=== PATIENT | male | born 1940 | race Caucasian/White ===

== ENCOUNTER 2020-05-19 15:17 | Inpatient (IN) | payer MEDICARE ==
[~2020-05-19] VITALS: Ht 185.4 cm; Wt 89.4 kg
[2020-05-19] MEDS ORDERED: LISI10TA4 PO (16:05)
[2020-05-19] MEDS ORDERED: DONE5TAB82 PO (16:05)
[2020-05-19] MEDS ORDERED: CARV3.12 PO (16:05)
[2020-05-19] MEDS ORDERED: FURO20TA2 PO (16:05)
[2020-05-19] MEDS ORDERED: ASPI81CH33 PO (16:05)
[2020-05-19] MEDS ORDERED: ONDA-83 PO (16:05)
[2020-05-19] MEDS ORDERED: METF-838 PO (16:05)
[2020-05-19] MEDS ORDERED: ROSU20TA5 PO (16:05)
[2020-05-19] MEDS ORDERED: SUCR1TAB56 PO (16:05)
[2020-05-19] MEDS ORDERED: METO5TAB2 PO (16:05)
[2020-05-19 16:18] LABS: BASO % 0.3 % (0.0-1.0); EOS # 0.2 10^3/uL (0.0-0.5); EOS % 2.4 % (0.0-3.0); HEMOGLOBIN 11.2 g/dl (13.5-17.5); MEAN CORPUSCULAR HEMOGLOBIN 30.4 pg (27.0-33.0); MEAN CORPUSCULAR HGB CONC 32.9 g/dl (32.0-36.5); MEAN CORPUSCULAR VOLUME 92.1 fl (80.0-96.0); MONO # 0.7 10^3/uL (0.0-0.8); MONO % 9.6 % (0.0-5.0); NEUTROPHILS # 3.9 10^3/uL (1.5-8.5); NEUTROPHILS % 57.4 % (36.0-66.0); PLATELET COUNT, AUTOMATED 227 10^3/uL (150-450); RED BLOOD COUNT 3.69 10^6/uL (4.30-6.10); WHITE BLOOD COUNT 6.7 10^3/uL (4.0-10.0)
[2020-05-19 16:41] LABS: INR 0.97
[2020-05-19 16:56] LABS: ALBUMIN 3.8 GM/DL (3.2-5.2); ALT/SGPT 19 U/L (12-78); BILIRUBIN,DIRECT < 0.1 MG/DL (0.0-0.2); BILIRUBIN,TOTAL 0.6 MG/DL (0.2-1.0); CK-MB VALUE MASS 1.3 NG/ML (<3.6); CPK CREATINE PHOSPHOKINASE 115 U/L (39-308); LIPASE 135 U/L (73-393); MB/CK RELATIVE INDEX 1.13 (< OR =4); TOTAL PROTEIN 6.7 GM/DL (6.4-8.2); TROPONIN I < 0.02 NG/ML (< 0.10)
[2020-05-19] MEDS ORDERED: ASPIRIN 81 MG CHEW TABLET PO ONE (17:45)
[2020-05-19] MEDS: NS 1,000 ML IV SCH (17:50)
[2020-05-19] MEDS: NITROGLYCERIN 0.4 MG SUBL TABLET SL PRN ×2 (17:52→18:04)
[2020-05-19] MEDS ORDERED: MORPHINE 2 MG/ML 1ML VIAL (J2270) IV ONE (19:45)
[2020-05-19] MEDS: HumaLOG INSULIN (NovoLOG) PER UNIT SC SCH (21:00)
[2020-05-19 22:29] LABS: CK-MB VALUE MASS < 1.0 NG/ML (<3.6); CPK CREATINE PHOSPHOKINASE 90 U/L (39-308); MB/CK RELATIVE INDEX 1.11 (< OR =4); TROPONIN I < 0.02 NG/ML (< 0.10)
[2020-05-19] MEDS ORDERED: FAMO1TAB25 PO (23:02)
[2020-05-20] VITALS (20 sets, daily range): BP systolic 118–192; BP diastolic 60–82; O2SAT 84–97
[2020-05-20] MEDS ORDERED: ASPIRIN 81 MG CHEW TABLET PO STA (00:28)
[2020-05-20] MEDS ORDERED: GLUCOSE 4GM CHEW TABLET PO PRN (00:30)
[2020-05-20] MEDS ORDERED: GLUCAGON INJ 1MG VIAL SC PRN (00:30)
[2020-05-20] MEDS ORDERED: ECOT81TA5 PO (00:30)
[2020-05-20] MEDS ORDERED: ACETAMINOPHEN TAB 650MG DOSE (2X325MG) PO PRN (00:30)
[2020-05-20] MEDS ORDERED: MOM 30ML SUSPENSION UDC PO PRN (00:30)
[2020-05-20] MEDS ORDERED: DEXTROSE 50% 50 ML SYRINGE IV PRN (00:30)
[2020-05-20] MEDS ORDERED: CARV3.12 PO (00:30)
[2020-05-20] MEDS ORDERED: NITROGLYCERIN 0.4 MG SUBL TABLET SL PRN (00:30)
[2020-05-20] MEDS ORDERED: ONDA-83 PO (00:39)
[2020-05-20] MEDS ORDERED: SUCR1TAB56 PO (00:39)
[2020-05-20] MEDS ORDERED: FURO20TA2 PO (00:39)
[2020-05-20] MEDS ORDERED: METF-838 PO (00:39)
[2020-05-20] MEDS ORDERED: DONE10TA90 PO (00:39)
[2020-05-20] MEDS ORDERED: ROSU20TA5 PO (00:39)
[2020-05-20] MEDS ORDERED: METO5TAB2 PO (00:39)
[2020-05-20] MEDS: CARVedilol 3.125 MG TAB PO SCH ×3 (01:45→20:47)
[2020-05-20] MEDS ORDERED: ONDANSETRON 4 MG TAB PO PRN (01:45)
[2020-05-20 02:54] LABS: TROPONIN I < 0.02 NG/ML (< 0.10)
[2020-05-20] MEDS: NS 1,000 ML IV SCH (03:17)
[2020-05-20] MEDS: SUCRALFATE 1 GM TAB PO SCH ×3 (03:17→21:01)
[2020-05-20] MEDS: ROSUVASTATIN 10 MG TAB (CRESTOR) PO SCH ×2 (03:17→21:01)
[2020-05-20] MEDS: DONEPEZIL 5 MG TAB PO SCH ×2 (03:18→21:01)
--- NOTE | 2020-05-20 06:28 | HPEPDOC ---
[facility] Medical History & Physical Date of Admission May 20, 2020 Date of Service: May 20, 2020 Attending Physician: MASOUD MORSE MD History and Physical TIME OF SERVICE: 1217 CHIEF COMPLAINT: chest pain HISTORY OF PRESENT ILLNESS: This 79 yr old M came to the hospital because he wasnt feeling good. He had sudden onset john, 01/17 in severity chest pain for several hours that occurred with activity. At the time of my exam it was gone. He also c/o of abdominal pain and diarrhea but denied, f/c/shortness of breath/leg swelling/ or cough. He has been living with his girlfriend who cant care for him bc of his dementia and sent him to live with his son. The patients son cant care for his father either. REVIEW OF SYSTEMS: 12 point review of systems negative except as listed in HPI PAST MEDICAL/ SURGICAL HISTORY: Dementia CAD HTN DM Dyslipidemia Cataracts Hx of anaplasmosis SOCIAL HISTORY: -tocacco, alcohol or drugs FAMILY HISTORY: CAD ALLERGIES: Please see below. HOME MEDICATIONS: Please see below. Vital Signs Date Time Temp Pulse Resp B/P (MAP) Pulse Ox O2 Delivery O2 Flow Rate FiO2 05/19/20 15:18 96.8 64 17 163/74 (103) 97 05/19/20 16:17 Room Air GENERAL APPEARANCE: well nourished/ well developed /NAD HEENT: no scleral icterus / EOMI CARDIOVASCULAR: bradycardic /NMRG / radial pulses intact LUNGS: CTAB on RA ABDOMEN: soft & not tender w palpitation MUSCULOSKELETAL: LUL x 4 INTEGUMENT: no generalized palor NEUROLOGICAL: CN -12 intact / speech not dysarthric PSYCHIATRIC: A&O /able to understand and follow all commands LABORATORY DATA: 05/19/20 15:53 Laboratory Tests 2 05/19/20 15:53: Immature Granulocyte % (Auto) 0.3, Neutrophils (%) (Auto) 57.4, Lymphocytes (%) (Auto) 30.0, Monocytes (%) (Auto) 9.6H, Eosinophils (%) (Auto) 2.4, Basophils (%) (Auto) 0.3, Neutrophils # (Auto) 3.9, Lymphocytes # (Auto) 2.0, Monocytes # (Auto) 0.7, Eosinophils # (Auto) 0.2, Basophils # (Auto) 0.0, Nucleated Red Blood Cells % (auto) 0.0, Prothrombin Time 13.0, Prothromb Time International Ratio 0.97, Total Bilirubin 0.6, Direct Bilirubin < 0.1, Aspartate Amino Transf (AST/SGOT) 20, Alanine Aminotransferase (ALT/SGPT) 19, Alkaline Phosphatase 59, Total Creatine Kinase 115, Creatine Kinase MB 1.3, Creatine Kinase MB Relative Index 1.13, Troponin I < 0.02, Total Protein 6.7, Albumin 3.8, Albumin/Globulin Ratio 1.3, Lipase 135 05/19/20 21:34: Total Creatine Kinase 90, Creatine Kinase MB < 1.0, Creatine Kinase MB Relative Index 1.11, Troponin I < 0.02 05/20/20 01:56: Troponin I < 0.02, D-Dimer, Quantitative 804.17H, Thyroid Stimulating Hormone (TSH) 2.380 05/20/20 06:07: IMAGING: Chest xray pending MICROBIOLOGY: Please see below. ASSESSMENT: is a 79 yr old w a hx of CAD, HTN, Dyslipidemia and HTN who will be admitted for evaluation of chest pain, abdominal pain and diarrhea pending placement. PLAN: 1.Chest pain EKG showed NSR w a rate of 61 Plan: admit to medical floor, telemetry, serial troponins, d-dimer, TSH, ASA, nitroglycerin, f/u chest x-ray 2.abdominal pain w diarrhea Plan: f/u GI panel / contact precautions 3. CAD / Dyslipidemia Plan: ASA, coreg, statin 4. HTN Plan: coreg, furosemide 5. DM Plan: FSBS, SSI, A1C hypoglycemia protocol 6. Dementia Plan: PFS for placement DVT px lovenox Dispo: home after more than 2 midnights stay Late Entry D-dimer greater than to age adjusted cut off of 10 x age therefore will order CTA to r/o PE Home Medications Scheduled Aspirin (Ecotrin) 81 Mg Tablet.dr, 81 MG PO DAILY Carvedilol (Carvedilol) 3.125 Mg Tablet, 3.125 MG PO BID Donepezil HCl (Donepezil HCl) 10 Mg Tablet, 10 MG PO QHS Furosemide (Furosemide) 20 Mg Tablet, 20 MG PO DAILY Metformin HCl (Metformin HCl ER) 500 Mg Tab.er.24h, 500 MG PO BID Metoclopramide HCl (Metoclopramide HCl) 5 Mg Tablet, 5 MG PO BID BEFORE MEALS Rosuvastatin Calcium (Rosuvastatin Calcium) 20 Mg Tablet, 20 MG PO QHS Sucralfate (Sucralfate) 1 Gm Tablet, 1 GM PO BID Scheduled PRN Ondansetron HCl (Ondansetron HCl) 4 Mg Tablet, 4 MG PO DAILY PRN for NAUSEA Allergies Coded Allergies: promethazine (Verified Allergy, Mild, 05/19/20) hallucinations quetiapine (Verified Allergy, Mild, 05/19/20) hallucinations A-FIB/CHADSVASC A-FIB History Current/History of A-Fib/PAF?: No Current PO Anticoag Therapy: No MASOUD MORSE MD May 20, 2020 06:28
[2020-05-20 06:56] LABS: TROPONIN I < 0.02 NG/ML (< 0.10)
[2020-05-20] MEDS: ASPIRIN 81 MG CHEW TABLET PO SCH ×2 (08:39→08:41)
[2020-05-20] MEDS: METOCLOPRAMIDE 5 MG TAB PO SCH ×2 (08:40→17:30)
[2020-05-20] MEDS: FUROSEMIDE 20 MG TAB PO SCH (08:40)
[2020-05-20] MEDS: ENOXAPARIN 40MG/0.4ML SYRINGE (J1650 PER 10MG) SC SCH (08:42)
[2020-05-20] MEDS: HumaLOG INSULIN (NovoLOG) PER UNIT SC SCH ×4 (08:45→20:45)
[2020-05-20 08:52] LABS: HEMATOCRIT 29.9 % (42.0-52.0); HEMOGLOBIN 9.9 g/dl (13.5-17.5); MEAN CORPUSCULAR HEMOGLOBIN 30.4 pg (27.0-33.0); MEAN CORPUSCULAR HGB CONC 33.1 g/dl (32.0-36.5); MEAN CORPUSCULAR VOLUME 91.7 fl (80.0-96.0); PLATELET COUNT, AUTOMATED 213 10^3/uL (150-450); RED BLOOD COUNT 3.26 10^6/uL (4.30-6.10); WHITE BLOOD COUNT 5.9 10^3/uL (4.0-10.0)
[2020-05-20] MEDS ORDERED: ASPIRIN 81 MG ENTERIC TAB PO SCH (09:00)
[2020-05-20 09:35] LABS: BLOOD UREA NITROGEN 23 MG/DL (7-18); CALCIUM LEVEL 8.6 MG/DL (8.8-10.2); CARBON DIOXIDE LEVEL 30 MEQ/L (21-32); CHLORIDE LEVEL 107 MEQ/L (98-107); CREATININE FOR GFR 1.13 MG/DL (0.70-1.30); GLOMERULAR FILTRATION RATE > 60.0 (>42); GLUCOSE, FASTING 174 MG/DL (70-100); POTASSIUM SERUM 3.2 MEQ/L (3.5-5.1); SODIUM LEVEL 143 MEQ/L (136-145)
[2020-05-20] MEDS ORDERED: ISOVUE-370 76% 100ML VIAL As Ordered ONE (10:30)
[2020-05-20] MEDS: KCL 10MEQ/100ML SWI (KRUN) 10 MEQ in IV 1 EA IV SCH ×2 (10:57→12:21)
[2020-05-20] MEDS ORDERED: BISACODYL 10 MG SUPP PR PRN (13:45)
--- NOTE | 2020-05-20 19:09 | IPNPDOC ---
Date Seen The patient was seen on 05/20/20. Progress Note SUBJECTIVE: patient seen and examined at bedside. Doing well, chest pain improved. No acute events overnight. Alert and oriented x 1. No new complaints. States that diarrhea resolved. OBJECTIVE PHYSICAL EXAMINATION: VITAL SIGNS: Please see below. GENERAL: NAD HEENT: PERRLA, EOMI CARDIOVASCULAR: RRR, normal S1, S2. RESPIRATORY: CTAB. ABDOMINAL: soft, non tender, BS+ EXTREMITIES: no edema, normal ROM in all extremities NEUROLOGICAL: No focal neuro deficits PSYCHOLOGICAL: calm, cooperative. AAO x 1-2. Follows commands. LABORATORY DATA, IMAGING STUDIES, MICROBIOLOGY: Please see below. DVT prophylaxis ordered?: Yes, lovenox. ASSESSMENT AND PLAN: 79 yo M with a hx of CAD, HTN, Dyslipidemia, HTN, admitted for evaluation of chest pain, abdominal pain and diarrhea. Will require placement. PROBLEMS: 1. Chest pain: - no acute findings on EKG - serial troponins negative - CXR wnl 2. Elevated D-dimer - CTA PE negative for PE 3. Abdo pain with diarrhea - GI panel not sent, f/u - improving 4. HTN - continue home meds - coreg - lasix 5. DM2 - Check A1c - ISS - hypoglycemia protocol 6. Dementia - home med donepezil 10 mg QHS - social work for placement 7. Hypokalemia: replace DVT ppx: lovenox. DISPOSITION: requires placement. Pending PT/OT/SW. VS, I&O, 24H, [facility] Vital Signs/I&O Vital Signs Date Time Temp Pulse Resp B/P (MAP) Pulse Ox O2 Delivery O2 Flow Rate FiO2 05/20/20 16:39 160/82 (108) 05/20/20 16:00 93 Room Air 05/20/20 16:00 97.7 54 19 I&O- Last 24 Hours up to 6 AM 05/20/20 06:00 Intake Total 1200 ml Output Total 0 ml Balance 1200 ml Laboratory Data 24H LABS Laboratory Tests 2 05/19/20 21:34: Total Creatine Kinase 90, Creatine Kinase MB < 1.0, Creatine Kinase MB Relative Index 1.11, Troponin I < 0.02 05/20/20 01:56: Troponin I < 0.02, D-Dimer, Quantitative 804.17H, Thyroid Stimulating Hormone (TSH) 2.380 05/20/20 06:04: Nucleated Red Blood Cells % (auto) 0.0 05/20/20 06:07: Troponin I < 0.02, Anion Gap 6L, Glomerular Filtration Rate > 60.0, Calcium Level 8.6L 05/20/20 12:06: Troponin I < 0.02 CBC/BMP Laboratory Tests 05/20/20 06:04 05/20/20 06:07 KRISTIN NEFF MD May 20, 2020 19:09
[2020-05-21] VITALS (8 sets, daily range): BP systolic 142–196; BP diastolic 70–80; O2SAT 94–97
[2020-05-21 05:51] LABS: HEMATOCRIT 33.6 % (42.0-52.0); HEMOGLOBIN 11.2 g/dl (13.5-17.5); MEAN CORPUSCULAR HEMOGLOBIN 30.4 pg (27.0-33.0); MEAN CORPUSCULAR HGB CONC 33.3 g/dl (32.0-36.5); MEAN CORPUSCULAR VOLUME 91.3 fl (80.0-96.0); PLATELET COUNT, AUTOMATED 220 10^3/uL (150-450); RED BLOOD COUNT 3.68 10^6/uL (4.30-6.10); WHITE BLOOD COUNT 6.2 10^3/uL (4.0-10.0)
[2020-05-21 06:08] LABS: BLOOD UREA NITROGEN 16 MG/DL (7-18); CALCIUM LEVEL 8.7 MG/DL (8.8-10.2); CARBON DIOXIDE LEVEL 29 MEQ/L (21-32); CHLORIDE LEVEL 109 MEQ/L (98-107); CREATININE FOR GFR 1.05 MG/DL (0.70-1.30); GLOMERULAR FILTRATION RATE > 60.0 (>42); GLUCOSE, FASTING 135 MG/DL (70-100); MAGNESIUM LEVEL 2.1 MG/DL (1.8-2.4); POTASSIUM SERUM 3.5 MEQ/L (3.5-5.1); SODIUM LEVEL 144 MEQ/L (136-145)
--- NOTE | 2020-05-21 07:41 | IPNPDOC ---
Date Seen The patient was seen on 05/21/20. Progress Note SUBJECTIVE: doing well today. Chest pain resolved. No diarrhea. Afebrile. OBJECTIVE PHYSICAL EXAMINATION: VITAL SIGNS: Please see below. GENERAL: NAD HEENT: PERRLA, EOMI CARDIOVASCULAR: RRR, normal S1, S2. RESPIRATORY: CTAB. ABDOMINAL: soft, non tender, BS+ EXTREMITIES: no edema, normal ROM in all extremities NEUROLOGICAL: No focal neuro deficits PSYCHOLOGICAL: calm, cooperative. AAO x 1-2. Follows commands. LABORATORY DATA, IMAGING STUDIES, MICROBIOLOGY: Please see below. DVT prophylaxis ordered?: Y on lovenox ASSESSMENT AND PLAN: 79 yo M with a hx of CAD, HTN, Dyslipidemia, HTN, admitted for evaluation of chest pain, abdominal pain and diarrhea. Resolved. Partner Mercedes, to take patient home, is able to provide 24 hour care. PROBLEMS: 1. Chest pain: - no acute findings on EKG - serial troponins negative - CXR wnl 2. Elevated D-dimer - CTA PE negative for PE 3. Abdo pain with diarrhea - resolved, no diarrhea - GI panel was not sent 4. HTN - BP 196/80 this morning, improved with BP meds to 168/82 - continue home meds - coreg 3.125 mg BID - increase to 6.25 mg BID on discharge - lasix 20 mg PO daily 5. DM2 - A1c 6.7 - ISS - hypoglycemia protocol 6. Dementia - home med donepezil 10 mg QHS - social work for placement 7. Hypokalemia: resolved DVT ppx: lovenox. DISPOSITION: cleared by OT for DC to prior level of care. Partner, Mercedes, confirmed she can provide 24 hour care. VS, I&O, 24H, [facility] Vital Signs/I&O Vital Signs Date Time Temp Pulse Resp B/P (MAP) Pulse Ox O2 Delivery O2 Flow Rate FiO2 05/21/20 04:00 96.9 53 18 142/72 (95) 94 Room Air I&O- Last 24 Hours up to 6 AM 05/21/20 05:59 Intake Total 978 ml Output Total 550 ml Balance 428 ml Laboratory Data 24H LABS Laboratory Tests 2 05/20/20 12:06: Troponin I < 0.02 05/21/20 05:31: Nucleated Red Blood Cells % (auto) 0.0, Anion Gap 6L, Glomerular Filtration Rate > 60.0, Calcium Level 8.7L, Magnesium Level 2.1 CBC/BMP Laboratory Tests 05/21/20 05:31 KRISTIN NEFF MD May 21, 2020 07:41
[2020-05-21] MEDS ORDERED: ASPIRIN 81 MG ENTERIC TAB PO SCH (09:00)
[2020-05-21] MEDS: FUROSEMIDE 20 MG TAB PO SCH (09:09)
[2020-05-21] MEDS: METOCLOPRAMIDE 5 MG TAB PO SCH (09:09)
[2020-05-21] MEDS: SUCRALFATE 1 GM TAB PO SCH (09:10)
[2020-05-21] MEDS: CARVedilol 3.125 MG TAB PO SCH (09:10)
[2020-05-21] MEDS: HumaLOG INSULIN (NovoLOG) PER UNIT SC SCH ×2 (09:11→12:37)
[2020-05-21] MEDS: ENOXAPARIN 40MG/0.4ML SYRINGE (J1650 PER 10MG) SC SCH (09:11)
[2020-05-21 10:51] LABS: HEMOGLOBIN A1c 6.7 %
[2020-05-21] MEDS ORDERED: ACET1TAB55 PO (13:05)
[2020-05-21] MEDS ORDERED: CARV6.25 PO (13:05)
--- NOTE | 2020-05-21 13:06 | DS.PDOC ---
Discharge Summary General Date of Admission May 20, 2020 at 00:36 Date of Discharge 05/21/20 Attending Physician: KRISTIN NEFF MD Discharge Summary PROCEDURES PERFORMED DURING STAY: [None]. ADMITTING DIAGNOSES: 1. Chest pain 2. elevated D dimer 3. Abdominal pain with diarrhea 4. HTN 5. DM2 6. Dementia DISCHARGE DIAGNOSES: 1. Chest pain 2. elevated D dimer 3. Abdominal pain with diarrhea 4. HTN 5. DM2 6. Dementia COMPLICATIONS/CHIEF COMPLAINT: Atypical Chest Pain. HISTORY OF PRESENT ILLNESS: This 79 yr old M came to the hospital because he wasnt feeling good. He had sudden onset john, 01/17 in severity chest pain for several hours that occurred with activity. At the time of my exam it was gone. He also c/o of abdominal pain and diarrhea but denied, f/c/shortness of breath/leg swelling/ or cough. He has been living with his girlfriend who cant care for him bc of his dementia and sent him to live with his son. The patients son cant care for his father either. HOSPITAL COURSE: Cardiac workup included EKG and trended troponin which revealed no abnormalities. Patient was chest pain free the entire course of admission. CTA/PE performed to r/o PE given elevated D-dimer and showed no PE. consulted for placement, contacted patient's partner Mercedes, who expressed wishes to take patient home; no concerns from for Mercedes's ability and desire to care for patient. BP on DC 168/82 after AM medications (manual check per RN), asymptomatic. Increased coreg to 6.25 mg BID with instructions to f/u with PCP. DISCHARGE MEDICATIONS: Please see below. ALLERGIES: Please see below. PHYSICAL EXAMINATION ON DISCHARGE: VITAL SIGNS: Please see below. GENERAL: NAD HEENT: PERRLA, EOMI CARDIOVASCULAR: RRR, normal S1, S2. RESPIRATORY: CTAB. ABDOMINAL: soft, non tender, BS+ EXTREMITIES: no edema, normal ROM in all extremities NEUROLOGICAL: No focal neuro deficits PSYCHOLOGICAL: calm, cooperative. AAO x 1-2. Follows commands. LABORATORY DATA: Please see below. PROGNOSIS: good ACTIVITY: AT, needs home PT. DIET: consistent carb DISCHARGE PLAN: home PT. DISPOSITION: dc home with partner DISCHARGE INSTRUCTIONS: 1. Please make sure to take your medications as prescribed. 2. Please call 911 or return to the ED if you developed fevers, chills, n/v/d, chest pain or loss of consciousness. ITEMS TO FOLLOWUP ON ON OUTPATIENT: 1. Home PT DISCHARGE CONDITION: [Stable]. TIME SPENT ON DISCHARGE: Greater than [30] minutes. Vital Signs/I&Os Vital Signs Date Time Temp Pulse Resp B/P (MAP) Pulse Ox O2 Delivery O2 Flow Rate FiO2 05/21/20 12:00 97.3 59 18 186/80 (115) 97 Room Air I&O- Last 24 Hours up to 6 AM 05/21/20 06:00 Intake Total 978 ml Output Total 550 ml Balance 428 ml Laboratory Data Labs 24H Laboratory Tests 2 05/21/20 05:31: Nucleated Red Blood Cells % (auto) 0.0, Anion Gap 6L, Glomerular Filtration Rate > 60.0, Estimated Mean Plasma Glucose 146H, Hemoglobin A1c 6.7, Calcium Level 8.7L, Magnesium Level 2.1 CBC/BMP Laboratory Tests 05/21/20 05:31 Discharge Medications Scheduled Aspirin (Ecotrin) 81 Mg Tablet.dr, 81 MG PO DAILY, (Reported) Carvedilol (Carvedilol) 6.25 Mg Tablet, 6.25 MG PO BID Donepezil HCl (Donepezil HCl) 10 Mg Tablet, 10 MG PO QHS, (Reported) Furosemide (Furosemide) 20 Mg Tablet, 20 MG PO DAILY, (Reported) Metformin HCl (Metformin HCl ER) 500 Mg Tab.er.24h, 500 MG PO BID, (Reported) Metoclopramide HCl (Metoclopramide HCl) 5 Mg Tablet, 5 MG PO BID, (Reported) BEFORE MEALS Rosuvastatin Calcium (Rosuvastatin Calcium) 20 Mg Tablet, 20 MG PO QHS, (Reported) Sucralfate (Sucralfate) 1 Gm Tablet, 1 GM PO BID, (Reported) Scheduled PRN Acetaminophen (Acetaminophen) 325 Mg Tablet, 650 MG PO Q4H PRN for PAIN OR FEVER Allergies Coded Allergies: promethazine (Verified Allergy, Mild, 05/19/20) hallucinations quetiapine (Verified Allergy, Mild, 05/19/20) hallucinations KRISTIN NEFF MD May 21, 2020 13:06
[2020-05-21] MEDS ORDERED: FLUBLOK(EGG FREE)(QUAD)INFLUENZA VACC 0.5ML SYRINGE 18YRS & OLDER IM ONE (15:00)
--- NOTE | 2020-05-29 13:36 | ECGEPIP ---
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
--- NOTE | 2020-06-08 13:20 | ECGEPIP ---
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
--- NOTE | 2020-06-16 08:55 | REP ---
PORTABLE CHEST X-RAY CLINICAL: Acute chest pain. COMPARISON: None. FINDINGS: Mediastinum and cardiac silhouette are grossly normal. Evidence for prior sternotomy and CABG noted. Lung aggarwal are clear and without consolidation, effusion, or pneumothorax. Skeletal structures intact. IMPRESSION: * Evidence for prior sternotomy and CABG. * No focal consolidation or effusion. MTDD
--- NOTE | 2020-06-17 15:20 | REP ---
CONTRAST ENHANCED CHEST CT CLINICAL: Acute chest pain. TECHNIQUE: Axial contrast enhanced images from the thoracic inlet to the upper abdomen with multiplanar reformations using pulmonary embolus technique, 75 cc [id number] intravenous contrast material administered without complication. FINDINGS: Satisfactory enhancement of the pulmonary vasculature is achieved, and no filling defects are identified to suggest pulmonary embolus. Thoracic aorta demonstrates atherosclerotic changes without aneurysm or dissection. Heart and pericardium demonstrates prior sternotomy and CABG without cardiomegaly or pericardial effusion. The bilateral lung aggarwal are relatively well aerated and without focal consolidation, obvious nodule, or mass. No effusion. No pneumothorax. Tracheobronchial tree is patent. No obvious adenopathy. Limited upper abdomen demonstrates normal bilateral adrenal glands and cholelithiasis along with hepatic and splenic calcifications suggesting prior granulomatous disease. IMPRESSION: * No evidence for pulmonary embolus. Thoracic aorta without aneurysm or dissection. * Evidence for prior sternotomy and CABG. * Cholelithiasis. * No acute mediastinal or pleuroparenchymal process. MTDD
== END 2020-05-21 16:15 | disposition home health service (06) | DRG 313 ==
LOC: M ED 15:17 → M ED INP 05-20 00:36 → ENRESERV 05-20 01:07 → M PCU 05-20 03:05
PROVIDERS: ADMIT Internal Medicine; ATTEND Family Medicine
DX: R07.9 Chest pain, unspecified (principal); R19.7 Diarrhea, unspecified; F03.90 Unspecified dementia, unspecified severity, without behavioral disturbance, psychotic disturbance, mood disturbance, and anxiety; E11.9 Type 2 diabetes mellitus without complications; I10 Essential (primary) hypertension; R10.9 Unspecified abdominal pain; Z79.82 Long term (current) use of aspirin; Z79.899 Other long term (current) drug therapy; Z88.8 Allergy status to other drugs, medicaments and biological substances; I25.10 Atherosclerotic heart disease of native coronary artery without angina pectoris; E78.5 Hyperlipidemia, unspecified